=== PATIENT | male | born 1945 | race Caucasian/White ===

== ENCOUNTER 2018-04-04 12:26 | Inpatient (IN) ==
[2018-04-04] MEDS ORDERED: Bisacodyl 10 MG RECTAL SUPPOSITORY RC PRN (14:27)
[2018-04-04] MEDS ORDERED: Ondansetron ODT 4 MG TAB.RAPDIS SL PRN (14:32)
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
[2018-04-04] MEDS: Ibuprofen 400 MG TABLET PO SCH (17:29)
[2018-04-05] MEDS: Ibuprofen 400 MG TABLET PO SCH ×5 (00:34→22:16)
[2018-04-05 05:52] LABS: Basophils % 0.3 %; Eosinophils # 0.5 K/mcL (0.0-0.6); Eosinophils % 8.8 %; Hematocrit 30.6 % (37.5-50.1); Hemoglobin 9.7 g/dL (12.9-16.9); Immature Granulocytes % 0.5 % (0-4); Lymphocytes # 1.7 K/mcL (0.6-4.6); Lymphocytes % 27.7 %; Mean Corpuscular HGB Conc 31.7 g/dL (31.6-35.5); Mean Corpuscular Hemoglobin 30.4 pg (28.0-33.3); Mean Corpuscular Volume 95.9 fL (83.0-100.0); Mean Platelet Volume 9.8 fL (9.4-12.4); Monocytes # 0.5 K/mcL (0.0-1.3); Monocytes % 8.6 %; Neutrophils # 3.3 K/mcL (1.6-8.9); Platelet Count 225 K/mcL (140-400); Red Blood Count 3.19 M/mcL (4.19-5.50); Red Cell Distribution Width 17.2 % (11.5-14.5); Segmented Neutrophils % 54.1 %
[2018-04-05] MEDS: *HR* Enoxaparin 40 MG/0.4 ML SYRINGE SQ SCH (06:00)
[2018-04-05 06:05] LABS: BUN/Creatinine Ratio 38 (6-26); Blood Urea Nitrogen 26 mg/dL (8-23); Calcium 8.4 mg/dL (8.6-10.3); Carbon Dioxide 24 mEq/L (23-29); Chloride 108 mEq/L (98-107); Glucose 94 mg/dL (70-105); Osmolality,Calculated 289 (280-300); Potassium 4.5 mEq/L (3.5-5.1); Sodium 137 mEq/L (136-145); eGFR For African Americans > 60 (> 60); eGFR For Non-African Americans > 60 (> 60)
[2018-04-05] MEDS: amLODIPine 5 MG TABLET PO SCH (08:46)
[2018-04-05] MEDS: Aspirin 81 MG TAB.CHEW PO SCH (08:46)
[2018-04-05] MEDS: Sennosides 8.6 MG TABLET PO SCH (08:46)
[2018-04-05] MEDS: Acetaminophen 325 MG TABLET PO PRN (08:47)
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
[2018-04-06] MEDS: *HR* Enoxaparin 40 MG/0.4 ML SYRINGE SQ SCH (06:22)
[2018-04-06] MEDS: Ibuprofen 400 MG TABLET PO SCH ×3 (06:23→16:53)
[2018-04-06] MEDS: Sennosides 8.6 MG TABLET PO SCH (07:38)
[2018-04-06] MEDS: amLODIPine 5 MG TABLET PO SCH (07:38)
[2018-04-06] MEDS: Aspirin 81 MG TAB.CHEW PO SCH (07:38)
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
[2018-04-07] MEDS: *HR* Enoxaparin 40 MG/0.4 ML SYRINGE SQ SCH (05:15)
[2018-04-07] MEDS: Ibuprofen 400 MG TABLET PO SCH ×4 (05:16→16:22)
[2018-04-07] MEDS: amLODIPine 5 MG TABLET PO SCH (07:33)
[2018-04-07] MEDS: Sennosides 8.6 MG TABLET PO SCH (07:33)
[2018-04-07] MEDS: Aspirin 81 MG TAB.CHEW PO SCH (07:33)
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
[2018-04-08] MEDS: Ibuprofen 400 MG TABLET PO SCH ×4 (00:41→16:09)
[2018-04-08] MEDS: *HR* Enoxaparin 40 MG/0.4 ML SYRINGE SQ SCH (06:06)
[2018-04-08] MEDS: amLODIPine 5 MG TABLET PO SCH (07:42)
[2018-04-08] MEDS: Sennosides 8.6 MG TABLET PO SCH (07:42)
[2018-04-08] MEDS: Aspirin 81 MG TAB.CHEW PO SCH (07:42)
[2018-04-08] MEDS: Multivit/Ca/Min/Fe/FA 1 TAB TABLET PO SCH (07:42)
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
[2018-04-09] MEDS: Ibuprofen 400 MG TABLET PO SCH ×4 (06:05→17:00)
[2018-04-09] MEDS: *HR* Enoxaparin 40 MG/0.4 ML SYRINGE SQ SCH (06:05)
[2018-04-09] MEDS: Aspirin 81 MG TAB.CHEW PO SCH (08:13)
[2018-04-09] MEDS: amLODIPine 5 MG TABLET PO SCH (08:13)
[2018-04-09] MEDS: Sennosides 8.6 MG TABLET PO SCH (08:13)
[2018-04-09] MEDS: Multivit/Ca/Min/Fe/FA 1 TAB TABLET PO SCH (08:13)
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
[2018-04-10] MEDS: Ibuprofen 400 MG TABLET PO SCH ×3 (05:57→15:45)
[2018-04-10] MEDS: *HR* Enoxaparin 40 MG/0.4 ML SYRINGE SQ SCH (05:58)
[2018-04-10] MEDS: amLODIPine 5 MG TABLET PO SCH (08:14)
[2018-04-10] MEDS: Sennosides 8.6 MG TABLET PO SCH (08:14)
[2018-04-10] MEDS: Multivit/Ca/Min/Fe/FA 1 TAB TABLET PO SCH (08:14)
[2018-04-10] MEDS: Aspirin 81 MG TAB.CHEW PO SCH (08:14)
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
[2018-04-11] MEDS: *HR* Enoxaparin 40 MG/0.4 ML SYRINGE SQ SCH (04:27)
[2018-04-11 05:17] LABS: Hematocrit 30.2 % (37.5-50.1); Hemoglobin 9.8 g/dL (12.9-16.9); Mean Corpuscular HGB Conc 32.5 g/dL (31.6-35.5); Mean Corpuscular Hemoglobin 30.8 pg (28.0-33.3); Mean Platelet Volume 9.4 fL (9.4-12.4); Platelet Count 288 K/mcL (140-400); Red Blood Count 3.18 M/mcL (4.19-5.50); Red Cell Distribution Width 16.4 % (11.5-14.5)
[2018-04-11 05:31] LABS: BUN/Creatinine Ratio 47 (6-26); Blood Urea Nitrogen 30 mg/dL (8-23); Calcium 8.7 mg/dL (8.6-10.3); Carbon Dioxide 24 mEq/L (23-29); Chloride 108 mEq/L (98-107); Glucose 94 mg/dL (70-105); Osmolality,Calculated 292 (280-300); Sodium 138 mEq/L (136-145); eGFR For African Americans > 60 (> 60); eGFR For Non-African Americans > 60 (> 60)
[2018-04-11] MEDS: amLODIPine 5 MG TABLET PO SCH (08:58)
[2018-04-11] MEDS: Sennosides 8.6 MG TABLET PO SCH (08:58)
[2018-04-11] MEDS: Aspirin 81 MG TAB.CHEW PO SCH (08:58)
[2018-04-11] MEDS: Multivit/Ca/Min/Fe/FA 1 TAB TABLET PO SCH (08:58)
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
[2018-04-12] MEDS: *HR* Enoxaparin 40 MG/0.4 ML SYRINGE SQ SCH (05:36)
[2018-04-12 07:12] LABS: Basophils # 0.1 K/mcL (0.0-0.2); Basophils % 1.2 %; Eosinophils # 0.4 K/mcL (0.0-0.6); Eosinophils % 6.4 %; Hemoglobin 10.1 g/dL (12.9-16.9); Immature Granulocytes % 0.7 % (0-4); Lymphocytes # 1.9 K/mcL (0.6-4.6); Lymphocytes % 33.9 %; Mean Corpuscular HGB Conc 32.6 g/dL (31.6-35.5); Mean Corpuscular Volume 95.1 fL (83.0-100.0); Mean Platelet Volume 9.4 fL (9.4-12.4); Monocytes # 0.7 K/mcL (0.0-1.3); Neutrophils # 2.6 K/mcL (1.6-8.9); Platelet Count 295 K/mcL (140-400); Red Blood Count 3.26 M/mcL (4.19-5.50); Red Cell Distribution Width 16.3 % (11.5-14.5); Segmented Neutrophils % 45.8 %
[2018-04-12 07:22] LABS: BUN/Creatinine Ratio 42 (6-26); Blood Urea Nitrogen 32 mg/dL (8-23); Calcium 8.7 mg/dL (8.6-10.3); Carbon Dioxide 26 mEq/L (23-29); Chloride 108 mEq/L (98-107); Glucose 92 mg/dL (70-105); Osmolality,Calculated 293 (280-300); Potassium 4.1 mEq/L (3.5-5.1); Sodium 138 mEq/L (136-145); eGFR For African Americans > 60 (> 60); eGFR For Non-African Americans > 60 (> 60)
[2018-04-12] MEDS: Multivit/Ca/Min/Fe/FA 1 TAB TABLET PO SCH (08:44)
[2018-04-12] MEDS: amLODIPine 5 MG TABLET PO SCH (08:44)
[2018-04-12] MEDS: Aspirin 81 MG TAB.CHEW PO SCH (08:44)
[2018-04-12] MEDS: Sennosides 8.6 MG TABLET PO SCH (08:44)
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
--- NOTE | 2018-04-12 17:40 | Electrocardiograph Report ---
[place] [id number] Test Date: 2018-04-05 Pat Name: Bebe Flores Department: 2001 Room: 104 Gender: M Ground Host/Hostess: : 1945 Requested By: Norman Justin Order Number: [id number] Reading MD: Merna Avila Measurements Intervals [place] Rate: 81 P: 44 SC: 176 QRS: -13 QRSD: 142 T: 84 QT: 391 QTc: 428 Interpretive Statements SINUS RHYTHM LEFT BUNDLE BRANCH BLOCK [120+ ms QRS DURATION, 80+ ms Q/S IN V1/V2, 85+ ms R IN I/aVL/V5/V6] Electronically Signed On 04-12-2018 17:39:11 EDT by Merna Avila
[2018-04-13] MEDS: *HR* Enoxaparin 40 MG/0.4 ML SYRINGE SQ SCH (05:15)
[2018-04-13] MEDS: Multivit/Ca/Min/Fe/FA 1 TAB TABLET PO SCH (09:52)
[2018-04-13] MEDS: Aspirin 81 MG TAB.CHEW PO SCH (09:52)
[2018-04-13] MEDS: Sennosides 8.6 MG TABLET PO SCH (09:52)
[2018-04-13] MEDS: amLODIPine 5 MG TABLET PO SCH (09:52)
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
[2018-04-14] MEDS: *HR* Enoxaparin 40 MG/0.4 ML SYRINGE SQ SCH (04:44)
[2018-04-14] MEDS: Aspirin 81 MG TAB.CHEW PO SCH (08:03)
[2018-04-14] MEDS: amLODIPine 5 MG TABLET PO SCH (08:03)
[2018-04-14] MEDS: Multivit/Ca/Min/Fe/FA 1 TAB TABLET PO SCH (08:03)
[2018-04-14] MEDS: Sennosides 8.6 MG TABLET PO SCH (08:03)
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
[2018-04-15] MEDS: *HR* Enoxaparin 40 MG/0.4 ML SYRINGE SQ SCH (05:12)
[2018-04-15] MEDS: Aspirin 81 MG TAB.CHEW PO SCH (08:45)
[2018-04-15] MEDS: Multivit/Ca/Min/Fe/FA 1 TAB TABLET PO SCH (08:46)
[2018-04-15] MEDS: Sennosides 8.6 MG TABLET PO SCH (08:46)
[2018-04-15] MEDS: amLODIPine 5 MG TABLET PO SCH (08:46)
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
[2018-04-16] MEDS: *HR* Enoxaparin 40 MG/0.4 ML SYRINGE SQ SCH (06:29)
[2018-04-16 07:15] VITALS: BP 121/76
[2018-04-16] MEDS: Acetaminophen 325 MG TABLET PO PRN (09:23)
[2018-04-16] MEDS: Multivit/Ca/Min/Fe/FA 1 TAB TABLET PO SCH (09:23)
[2018-04-16] MEDS: Sennosides 8.6 MG TABLET PO SCH (09:23)
[2018-04-16] MEDS: amLODIPine 5 MG TABLET PO SCH (09:23)
[2018-04-16] MEDS: Aspirin 81 MG TAB.CHEW PO SCH (09:23)
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
== END 2018-04-16 18:35 | disposition home or self-care (01) | DRG 560 ==
LOC: INPGRE 12:30